=== PATIENT | male | born 1985 | race Two or more races ===

== ENCOUNTER 2018-09-11 15:57 | Emergency (ER) | payer SELFPAY ==
[~2018-09-11] VITALS: Ht 172.7 cm; Wt 88.0 kg
[2018-09-11] MEDS ORDERED: IBUPROFEN 600MG TABLET PO ONE (20:30)
[2018-09-11 21:43] VITALS: BP 152/88
== END 2018-09-11 21:50 | disposition home or self-care (01) ==
LOC: ER 15:57
DX: S20.212A Contusion of left front wall of thorax, initial encounter (principal); S46.912A Strain of unspecified muscle, fascia and tendon at shoulder and upper arm level, left arm, initial encounter; S16.1XXA Strain of muscle, fascia and tendon at neck level, initial encounter; V49.88XA Car occupant (driver) (passenger) injured in other specified transport accidents, initial encounter; Y93.89 Activity, other specified; Y92.89 Other specified places as the place of occurrence of the external cause; Y99.8 Other external cause status
CPT/HCPCS: 71045; 93005; 99283